=== PATIENT | male | born 1995 ===

== ENCOUNTER 2025-05-10 09:18 | Emergency (ER) | payer BC ==
[2025-05-10 09:42] LABS: BASOPHILS ABSOLUTE AUTO 0.03 K/uL (0.00-0.20); BASOPHILS PERCENT AUTO 0.8 % (0.0-2.0); EOSINOPHILS ABSOLUTE AUTO 0.03 K/uL (0.00-0.50); EOSINOPHILS PERCENT AUTO 0.8 % (0.0-5.0); IMMATURE GRAN ABSOLUTE AUTO 0.01 10^3/uL (0.00-0.04); IMMATURE GRAN PERCENT AUTO 0.3 % (0.0-0.4); LYMPHOCYTES ABSOLUTE AUTO 1.50 K/uL (0.50-3.50); LYMPHOCYTES PERCENT AUTO 37.7 % (10.0-50.0); MONOCYTES ABSOLUTE AUTO 0.41 K/uL (0.00-1.00); MONOCYTES PERCENT AUTO 10.3 % (2.0-14.0); NEUTROPHILS ABSOLUTE AUTO 2.00 K/uL (1.40-7.00); NEUTROPHILS PERCENT AUTO 50.1 % (45.0-80.0); PLATELET COUNT,PLT 164 K/uL (150-350); RED BLOOD CELL COUNT 4.94 M/uL (4.33-5.41); RED CELL DISTRIBUTION WIDTH 12.5 % (11.2-14.1); WHITE BLOOD CELL COUNT,WBC 4.0 K/uL (4.0-10.2)
[2025-05-10] MEDS: Ketorolac 30 MG/ML SDV IM ONE (10:09)
[2025-05-10] MEDS: diphenhydrAMINE 50 MG/ML SDV IM ONE (10:11)
[2025-05-10] MEDS: Prochlorperazine 10 MG/2 ML SDV IM ONE (10:12)
[2025-05-10 10:34] LABS: ALANINE AMINOTRANSFERASE,ALT 29 U/L (12-78); ASPARTATE AMNIOTRANSFERASE,AST 19 U/L (15-37); BILIRUBIN TOTAL 0.7 mg/dL (0.2-1.0); BLOOD UREA NITROGEN,BUN 9 mg/dL (7-18); CARBON DIOXIDE,CO2 31.0 mmol/L (21.0-32.0); CHLORIDE,CL 106 mmol/L (98-107); CREATININE 1.01 mg/dL (0.51-1.17); GLUCOSE RANDOM 91 mg/dL (70-99); POTASSIUM,K 3.6 mmol/L (3.5-5.1); PROTEIN TOTAL,TP 7.3 g/dL (6.4-8.2); SODIUM,NA 143 mmol/L (136-145)
[2025-05-10 10:35] LABS: ESTIMATED GFR 102 mL/min (>=60)
== END 2025-05-10 12:10 | disposition home or self-care (01) ==
LOC: LL.ED 09:18
DX: G43.909 Migraine, unspecified, not intractable, without status migrainosus (principal)
CPT/HCPCS: 36415; 70450; 80053; 85025; 86140; 96372; 99284; J0780; J1200; J1885